=== PATIENT | female | born 1970 | race Hispanic/Latino ===

== ENCOUNTER → 2018-07-29 | Outpatient (CLI) | payer OTHER ==
--- NOTE | 2018-07-29 11:00 | Diagnostic Imaging Report ---
EXAM: US ABDOMEN COMPLETE INDICATION: Elevated liver enzymes. COMPARISON: Report from ultrasound on 11/06/2016, the images were not available for review at the time of this dictation. TECHNIQUE: Transverse and longitudinal shah scale and color doppler sonographic images of the abdomen were obtained. FINDINGS: LIVER 17.1 cm in the right midclavicular line. Increased echogenicity of the liver with normal contour, no masses. SPLEEN 10.4 cm in maximum diameter. Normal echogenicity, no masses. GALLBLADDER Status post cholecystectomy. BILE DUCTS No intra nor extra-hepatic biliary dilation. Common bile duct measures 0.6 cm PANCREAS: Visualized portions are normal. RIGHT KIDNEY: 10.0 cm Echogenicity: Normal Collecting System: No hydronephrosis Stones: None Cyst/Mass: None LEFT KIDNEY: 12.0 cm Echogenicity: Normal Collecting System: No hydronephrosis Stones: None Cyst/Mass: None VESSELS: Aorta: Visualized portions are within normal size limits Inferior Vena Cava: Visualized portions are normal Main Portal Vein: 1.0 cm, normal size with hepatopetal flow. FREE FLUID: None IMPRESSION: Hepatomegaly and hepatic steatosis. Status post cholecystectomy. Signed by: Dr. Franko Salgado MD on 07/29/2018 10:57 AM
== END ==
LOC: US 07:40
PROVIDERS: ATTEND Internal Medicine Gastroenterology
DX: R74.8 Abnormal levels of other serum enzymes (principal); K76.0 Fatty (change of) liver, not elsewhere classified; E11.9 Type 2 diabetes mellitus without complications; I10 Essential (primary) hypertension; Z71.3 Dietary counseling and surveillance; E66.3 Overweight
CPT/HCPCS: 76700

== ENCOUNTER → 2024-10-20 | Day surgery (SDC) | payer OTHER ==
[~2024-10-20] MED LIST: BENICAR20 MG PO; LIDOCAINE HCL 2% LOCAL INJ 5 ML SDV VIAL INJ ONE; METFORMIN HCL500 M2 PO; NEURONTIN300 MG PO; PROPOFOL IV EMULSION 50 ML IV ONE; VITAMIN D250 MCG PO
[2024-10-20] MEDS: LACTATED RINGER'S 1,000 ML ONE (11:12)
[2024-10-20 13:09] VITALS: TEMP 97.3
[2024-10-20 13:50] VITALS: BP 119/73; PULSE 72; RESP 16; O2SAT 98
== END | disposition home or self-care (01) ==
LOC: OR 10:21
PROVIDERS: ATTEND Internal Medicine Gastroenterology
DX: K29.50 Unspecified chronic gastritis without bleeding (principal); D12.2 Benign neoplasm of ascending colon; K44.9 Diaphragmatic hernia without obstruction or gangrene; R19.7 Diarrhea, unspecified; K64.8 Other hemorrhoids; R74.8 Abnormal levels of other serum enzymes; K76.0 Fatty (change of) liver, not elsewhere classified; I10 Essential (primary) hypertension; Z01.810 Encounter for preprocedural cardiovascular examination; Z79.84 Long term (current) use of oral hypoglycemic drugs; Z79.899 Other long term (current) drug therapy; Z68.30 Body mass index [BMI] 30.0-30.9, adult
CPT/HCPCS: 36415; 43239; 45385; 82948; 93005; J2003; J2704; J7121; 45378